=== PATIENT | female | born 1970 | race Caucasian/White ===

== ENCOUNTER 2017-06-09 09:58 | Emergency (ER) | payer MEDICAID ==
[~2017-06-09] VITALS: Ht 167.6 cm; Wt 88.0 kg
[~2017-06-09 09:58] MED LIST: PREN1TAB49 PO
[2017-06-09 10:02] VITALS: Ht 167.6 cm; Wt 88.0 kg
[2017-06-09 10:48] LABS: URINE BLOOD (Dip) POC Negative (NEGATIVE)
[2017-06-09] MEDS ORDERED: FLUC150T17 PO (11:04)
[2017-06-09] MEDS ORDERED: [UNRECOGNIZED DRUG - CODE] VAG (11:04)
--- NOTE | 2017-06-09 11:07 | ERD ---
ER Documentation Chief Complaint Date/Time DATE: 06/09/17 TIME: 11:06 Chief Complaint CAME IN VIA INTAKE DUE TO PAIN WITH URINATION HPI This 47-year-old female presents with dysuria and vaginal itching remotely for last week. She denies any fevers, recent antibiotics,. She has some slight whitish vaginal discharge. She denies abdominal pain or flank pain. Denies fevers. ROS All systems reviewed and are negative except as per history of present illness. Medications Home Meds Active Scripts Terconazole* (Terazol 3*) 0.8% Cr, 1 APPLIC VAG HS for 3 Days, #1 TUB X 3 DAYS Prov:VADIM VELÁZQUEZ MD 06/09/17 Fluconazole* (Diflucan*) 150 Mg Tablet, 150 MG PO DAILY, #1 TAB Prov:VADIM VELÁZQUEZ MD 06/09/17 Reported Medications Vits W-Ca,Fe,Fa(<1MG) () 1 Tab Tablet, 1 TAB PO DAILY 10/24/11 [None] No Conflict Check 11/18/09 Allergies Allergies: Coded Allergies: No Known Drug Allergies (Verified Allergy, Mild, 10/24/11) PMhx/Soc History of Surgery: Yes (ECTOPIC ) Hx Neurological Disorder: No Hx Respiratory Disorders: No Hx Cardiac Disorders: No Hx Miscellaneous Medical Probl: No Hx Alcohol Use: No Hx Substance Use: No Hx Tobacco Use: No Physical Exam Vitals Vital Signs Date Time Temp Pulse Resp B/P Pulse Ox O2 Delivery O2 Flow Rate FiO2 06/09/17 10:02 97.8 73 18 134/73 99 Physical Exam Const: [], [id number]. Head: Atraumatic Eyes: Normal Conjunctiva ENT: Normal External Ears, Nose and Mouth. Neck: Full range of motion..~ No meningismus. Resp: Clear to auscultation bilaterally Cardio: Regular rate and rhythm, no murmurs Abd: Soft, non tender, non distended. Normal bowel sounds. Pelvic exam with packaging sales shows some redness and irritation and slight whitish discharge at the introitus. No significant erythema, warmth, induration, vesicles. Skin: No petechiae or rashes Back: No midline or flank tenderness Ext: No cyanosis, or edema Neur: Awake and alert Psych: Normal Mood and Affect Results 24 hrs Laboratory Tests Test 06/09/17 10:56 Bedside Urine pH (LAB) 7.0 Bedside Urine Protein (LAB) Negative Bedside Urine Glucose (UA) Negative Bedside Urine Ketones (LAB) Negative Bedside Urine Blood Negative Bedside Urine Nitrite (LAB) Negative Bedside Urine Leukocyte Esterase (L Negative Procedures/MDM ECG is negative. Urine is negative for leukocytes, nitrites, glucose, blood. Patient has signs and symptoms of vaginitis. There is no evidence of UTI, signs of acute abdomen, nephritis, sepsis. She will be treated with Terazol and Diflucan, primary care follow-up and return precautions. The patient was stable with no new complaints during the ER course. Clinically, there is no current evidence to suggest meningitis, sepsis, acute abdomen, pneumonia, acute coronary syndrome, pulmonary embolism, or any other emergent condition appearing to require further evaluation or hospitalization. The patient should certainly return for any new or worsening symptoms per the aftercare instructions. They should otherwise follow-up with her primary care doctor for reevaluation this week. Departure Diagnosis: Primary Impression: Vaginitis Chronicity: acute Qualified Code: N76.0 - Acute vaginitis Additional Impression: Genitourinary symptoms Condition: Stable Patient Instructions: Vaginitis, Myranda Additional Instructions: orina normal. Cheque otro vez con cunningham doctor primario en el proximo holman or regresa para mas o nueva simptomas. VADIM VELÁZQUEZ MD Jun 09, 2017 11:07
[2017-06-09 13:00] LABS: URINE BLOOD (Dip) POC Negative (NEGATIVE)
== END 2017-06-09 11:19 | disposition home or self-care (01) ==
LOC: FTE 09:58
DX: N76.0 Acute vaginitis (principal)
CPT/HCPCS: 81003; Z7502; 99284

== ENCOUNTER 2018-01-27 21:45 | Emergency (ER) | END 2018-01-28 03:26 | disposition home or self-care (01) ==

== ENCOUNTER 2018-11-10 14:18 | Emergency (ER) | payer MEDICAID ==
[~2018-11-10] VITALS: Ht 162.6 cm; Wt 89.2 kg
[~2018-11-10 14:18] MED LIST changes: +FAMO-96 PO; +FLUC150T PO; +NAPR-985 PO; +NITR-58 PO; +PHEN-538 PO; +[UNRECOGNIZED DRUG - CODE] VAG
[2018-11-10 14:26] VITALS: Ht 162.6 cm; Wt 89.2 kg
[2018-11-10] MEDS ORDERED: HYDROCODONE/APAP (5/325) TAB PO ONE (16:00)
[2018-11-10] MEDS ORDERED: NAPR-985 PO (16:29)
[2018-11-10] MEDS ORDERED: HYDR-4011 PO (16:29)
[2018-11-10 16:46] VITALS: BP 136/65; PULSE 94; RESP 18
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
== END 2018-11-10 16:47 | disposition home or self-care (01) ==
LOC: FTE 14:18
DX: S20.219A Contusion of unspecified front wall of thorax, initial encounter (principal); V49.40XA Driver injured in collision with unspecified motor vehicles in traffic accident, initial encounter
CPT/HCPCS: 70160; 71045; Z7502; Z7610